=== PATIENT | male | born 1965 | race Two or more races ===

== ENCOUNTER 2017-08-14 23:03 | Emergency (ER) | payer OTHER ==
[2017-08-14 23:10] VITALS: BP 133/74; PULSE 96; RESP 20; TEMP 98.6
--- NOTE | 2017-08-14 23:37 | ED ---
Wound/Laceration HPI - General Chief Complaint: Wound/Laceration Stated Complaint: Fish Hook in finger Time Seen by Provider: 08/14/17 23:18 Source: patient, family Mode of arrival: ambulatory Limitations: no limitations - History of Present Illness Initial Comments: This patient is a 52-year-old man who presents to be evaluated for having a fishhook stuck in his finger. Patient states he was fishing approximately one hour ago when his fishing lower became embedded in his right fourth digit. Patient denies weakness or numbness of the digit. He believes that his last tetanus shot would've been given over 10 years ago. Onset/Timin -: hour(s) Extremity Location: Right: Hand Place: outdoors Patient Tetanus UTD: No Context: accidental Associated Symptoms: pain - Related Data Allergies Allergy/AdvReac Type Severity Reaction Status Date / Time No Known Allergies Allergy Verified 08/14/17 23:10 Review of Systems ROS Statement: Those systems with pertinent positive or pertinent negative responses have been documented in the HPI. ROS Other: All systems not noted in ROS Statement are negative. Constitutional: Denies: fever, chills Skin: Reports: as per HPI, other (Luck lodged in finger) Hematological/Lymphatic: Denies: easy bleeding Past Medical History Past Medical History: Diabetes Mellitus, Hypertension History of Any Multi-Drug Resistant Organisms: None Reported Past Surgical History: No Surgical Hx Reported Past Psychological History: No Psychological Hx Reported Smoking Status: Never smoker Past Alcohol Use History: None Reported Past Drug Use History: None Reported General Exam Limitations: no limitations General appearance: alert, in no apparent distress Cardiovascular Exam: Present: other (Capillary refill normal throughout hand) Neurological exam: Present: other (No sensorimotor deficit throughout finger or hand) Skin exam: Present: warm, dry, normal color, other (Patient has trouble which is embedded in the soft tissue of the right fourth digit.) Course Vital Signs 08/14/17 23:05 Temperature 98.6 F Pulse Rate 96 Respiratory 20 Rate Blood Pressure 133/74 O2 Sat by Pulse 97 Oximetry Medical Decision Making - Medical Decision Making I remove the fishhook in the finger by performing local lidocaine infusion total of 1 mL administered. I was unable to grasp and gently back the hook out using a small needle nose pliers. Neurovascular exam normal. Discussed wound care and appropriate follow-up. Tetanus booster ordered. Disposition Clinical Impression: Fish hook injury of finger Disposition: HOME SELF-CARE Condition: Good Instructions: Soft Tissue Foreign Body (ED), Puncture Wound (ED) Is patient prescribed a controlled substance at d/c from ED?: No Referrals: Nonstaff,Physician [Primary Care Provider] - 1-2 days
[2017-08-14] MEDS ORDERED: DIPH,PERTUS(ACELL)TETVAC-LF 0.5 ML VIAL IM ONE (23:38)
== END 2017-08-15 00:06 | disposition home or self-care (01) ==
LOC: EC 23:03
DX: S60.454A Superficial foreign body of right ring finger, initial encounter (principal); Z23 Encounter for immunization; W45.8XXA Other foreign body or object entering through skin, initial encounter; Y92.89 Other specified places as the place of occurrence of the external cause; Y93.89 Activity, other specified
CPT/HCPCS: 90471; 90715; 99283